=== PATIENT | female | born 1995 | race Caucasian/White ===

== ENCOUNTER 2018-06-16 12:12 | Emergency (ER) | payer MEDICAID ==
--- NOTE | 2018-06-16 12:59 | EDPHY ---
H & P Stated Complaint: palpitations Time Seen by Provider: 06/16/18 12:35 HPI/ROS: CHIEF COMPLAINT: Palpitations, "I just feel lethargic" HISTORY OF PRESENT ILLNESS: 23-year-old female generally healthy arrives via ambulance. She describes being in class today, thought that she was going to be taking examination, started to feel palpitations, hyperventilation, diaphoresis, anxiety, called 911. She notes very little sleep recently. She was able to eat breakfast, headache cup of green tea with no other energy or caffeine intake. She is currently asymptomatic when I examine her. She was diagnosed with Coxsackie virus approximately 1 week ago at Urgent Care. She is concerned that she may have developed viral meningitis secondary to recent Coxsackie diagnosis. She denies: Headache, nausea, vomiting, nuchal rigidity, chest pain, dyspnea , syncope or near syncope. REVIEW OF SYSTEMS: 10 systems reviewed and negative with the exception of the elements mentioned in the history of present illness PAST MEDICAL & SURGICAL HISTORY: No pertinent medical or surgical history . No exogenous estrogen use. No oral contraceptive use. SOCIAL HISTORY:Student. Nonsmoker. No cocaine use. No alcohol use. Nonsmoker. Family history: No family history of VTE, sudden unexplained , premature coronary artery disease PHYSICAL EXAM (Prior to examination, patient consented to physical exam, hands were washed and my usual and customary physical exam procedures followed) 1) GENERAL: Well-developed, well-nourished, alert and oriented. Appears to be in no acute distress. Smiling, answering questions appropriately 2) HEAD: Normocephalic, atraumatic 3) HEENT: Pupils equal, round, reactive to light bilaterally. Sclera anicteric. Nasopharynx, oropharynx, clear, no lesions. Moist Mucous membranes. No tonsillar enlargement or exudate. He has 4) NECK: Full range of motion, no meningeal signs. 5) LUNGS: Clear auscultation bilaterally, no wheezes, no rhonchi, no retractions. 6) HEART: Regular rate and rhythm, no murmur, no heave, no gallop. 7) ABDOMEN: No guarding, no rebound, no focal tenderness, negative McBurney's, negative Streeter's, negative Rovsing's, negative peritoneal sign, 8) MUSCULOSKELETAL: Moving all extremities, no focal areas of tenderness, no obvious trauma. No peripheral edema or discoloration. 9) BACK: No CVA tenderness, no midline vertebral tenderness, no fluctuance, no step-off, no obvious trauma, no visual or palpable abnormality. 10) SKIN: No rash, no petechiae. 11) Psychiatric: Patient is oriented X 3, there is no agitation. DIFFERENTIAL DIAGNOSIS: In no particular order including but not limited to transient hypoglycemia, acute anxiety reaction, Coxsackie myocarditis, viral syndrome - Personal History LMP (Females 10-55): 1-7 Days Ago Current Tetanus/Diphtheria Vaccine: No Current Tetanus Diphtheria and Acellular Pertussis (TDAP): No - Medical/Surgical History Hx Asthma: No Hx Chronic Respiratory Disease: No Hx Diabetes: No Hx Cardiac Disease: No Hx Renal Disease: No Hx Cirrhosis: No Hx Alcoholism: No Hx HIV/AIDS: No Hx Splenectomy or Spleen Trauma: No Other PMH: strabismus surgery - Social History Smoking Status: Never smoked Constitutional: Initial Vital Signs Temperature (C) 36.7 C 06/16/18 12:19 Heart Rate 62 06/16/18 12:19 Respiratory Rate 16 06/16/18 12:19 Blood Pressure 151/95 H 06/16/18 12:19 O2 Sat (%) 100 06/16/18 12:19 O2 Delivery Mode Room Air Allergies/Adverse Reactions: No Known Allergies Allergy (Unverified 06/16/18 12:22) Home Medications: Medication Instructions Recorded Dicyclomine 06/16/18 Medical Decision Making ED Course/Re-evaluation: 3:20 p.m.: Re-evaluation. Patient resting comfortably, asymptomatic. Discussed with her normal sinus EKG, negative mono, laboratory studies. At this time I think the patient can be safely discharged home. Discussed possible etiologies for her symptoms which include, but are not limited to, acute anxiety reaction. Heart rate remains normal while in the emergency department. Doubt Coxsackie myocarditis or viral myocarditis. I recommended close follow-up as she may necessitate further diagnostic studies. She feels comfortable being discharged. All questions and concerns addressed by myself. Care of patient under supervision of secondary supervising physician Dr Rooney . - Data Points Laboratory Results: Laboratory Results 06/16/18 13:00 06/16/18 13:00 06/16/18 06/16/18 06/16/18 13:00 13:00 13:00 WBC 3.33 10^3/uL L 10^3/uL (3.80-9.50) RBC 4.78 10^6/uL 10^6/uL (4.18-5.33) Hgb 13.6 g/dL g/dL (12.6-16.3) Hct 42.0 % % (38.0-47.0) MCV 87.9 fL fL (81.5-99.8) MCH 28.5 pg pg (27.9-34.1) MCHC 32.4 g/dL g/dL (32.4-36.7) RDW 13.4 % % (11.5-15.2) Plt Count 224 10^3/uL 10^3/uL (150-400) MPV 11.9 fL H fL (8.7-11.7) Neut % (Auto) 63.1 % % (39.3-74.2) Lymph % (Auto) 28.5 % % (15.0-45.0) Dixie % (Auto) 6.3 % % (4.5-13.0) Eos % (Auto) 0.9 % % (0.6-7.6) Baso % (Auto) 0.9 % % (0.3-1.7) Nucleat RBC Rel Count 0.0 % % (0.0-0.2) Absolute Neuts (auto) 2.10 10^3/uL 10^3/uL (1.70-6.50) Absolute Lymphs (auto) 0.95 10^3/uL L 10^3/uL (1.00-3.00) Absolute Monos (auto) 0.21 10^3/uL L 10^3/uL (0.30-0.80) Absolute Eos (auto) 0.03 10^3/uL 10^3/uL (0.03-0.40) Absolute Basos (auto) 0.03 10^3/uL 10^3/uL (0.02-0.10) Absolute Nucleated RBC 0.00 10^3/uL 10^3/uL (0-0.01) Immature Gran % 0.3 % % (0.0-1.1) Immature Gran # 0.01 10^3/uL 10^3/uL (0.00-0.10) Sodium 139 mEq/L mEq/L (135-145) Potassium 4.2 mEq/L mEq/L (3.5-5.2) Chloride 105 mEq/L mEq/L (97-110) Carbon Dioxide 23 mEq/l mEq/l (22-31) Anion Gap 11 mEq/L mEq/L (6-14) BUN 9 mg/dL mg/dL (7-23) Creatinine 0.7 mg/dL mg/dL (0.6-1.0) Estimated GFR > 60 Glucose 76 mg/dL mg/dL (70-100) Calcium 10.2 mg/dL mg/dL (8.5-10.4) Beta HCG, Qual NEGATIVE Monoscreen NEGATIVE (NEGATIVE) Departure - Departure Disposition: Home, Routine, Self-Care Clinical Impression: Coxsackie virus disease Fatigue Qualifiers: Fatigue type: unspecified Qualified Code(s): R53.83 - Other fatigue Condition: Good Instructions: Fatigue (ED) Additional Instructions: Return to emergency department immediately if you develop chest pain, shortness of breath, or any other symptoms that concern you. Referrals: [facility] [Clinic] - 1-2 days without fail Stand Alone Forms: School Excuse
[2018-06-16 13:50] LABS: PLATELET COUNT 224 10^3/uL (150-400)
[2018-06-16 15:50] VITALS: BP 132/77
--- NOTE | 2018-06-21 22:31 | CPEKG ---
Test Reason : OPEN Blood Pressure : / mmHG Vent. Rate : 059 BPM Atrial Rate : 059 BPM P-R Int : 163 ms QRS Dur : 085 ms QT Int : 424 ms P-R-T Axes : 019 088 072 degrees QTc Int : 420 ms Sinus rhythm Confirmed by Lorna Rooney ([id number]) on 06/21/2018 10:30:46 PM Referred By: LORNA ROONEY Confirmed By:Lorna Rooney
== END 2018-06-16 15:50 | disposition home or self-care (01) ==
DX: R53.83 Other fatigue (principal); B34.1 Enterovirus infection, unspecified